=== PATIENT | female | born 1990 | race Caucasian/White ===

== ENCOUNTER 2018-01-23 13:37 | Emergency (ER) | payer BC ==
[~2018-01-23] VITALS: Ht 170.2 cm; Wt 62.1 kg
[2018-01-23 13:39] VITALS: BP 152/91
[2018-01-23] MEDS ORDERED: PREDNISONE10 MG PO (14:39)
== END 2018-01-23 15:21 | disposition home or self-care (01) ==
LOC: EME 13:37
DX: L23.7 Allergic contact dermatitis due to plants, except food (principal)
CPT/HCPCS: 99281; 99284